=== PATIENT | female | born 1955 | race Caucasian/White ===

== ENCOUNTER 2018-06-24 13:31 | Emergency (ER) | payer OTHER, SELFPAY ==
[2018-06-24] VITALS (9 sets, daily range): BP systolic 126–153; BP diastolic 57–82; PULSE 92–100; RESP 15–21; TEMP 36.4–36.9; O2SAT 95–100
--- NOTE | 2018-06-24 13:56 | DI.RAD.S_ITS ---
PROCEDURE: XR CHEST 1V INDICATIONS: chest pressure TECHNIQUE: One view of the chest was acquired. COMPARISON: [facility], CHEST 1 VIEW, 09/15/2015, 22:20. [facility], CHEST 1 VIEW, 10/15/2015, 17:56. FINDINGS: Surgical changes and devices: None. Lungs and pleura: No pleural effusions or pneumothorax. Lungs are clear. Mediastinum: Mediastinal contours appear normal. Heart size is normal. Bones and chest wall: No suspicious bony lesions. Overlying soft tissues appear unremarkable. IMPRESSION: No acute cardiopulmonary disease process. Dictated by: Reanna Trujillo MD, PhD on 06/24/2018 at 14:32 Approved by: Reanna Trujillo MD, PhD on 06/24/2018 at 14:33
--- NOTE | 2018-06-24 13:58 | DI.CT.S_ITS ---
PROCEDURE: CT HEAD/BRAIN WO CON INDICATIONS: SCOTT, neuro symptoms TECHNIQUE: Noncontrast 4.5 mm thick angled axial sections acquired from the foramen magnum to the vertex, with coronal and sagittal reformats. For radiation dose reduction, the following was used: automated exposure control, adjustment of mA and/or kV according to patient size. COMPARISON: [facility], CT, HEAD WITHOUT CONTRAST, 08/02/2016, 8:49. FINDINGS: Image quality: Excellent. CSF spaces: Basal cisterns are patent. No extra-axial fluid collections. The ventricles are symmetric in size and shape. Brain: No intracranial bleeds or masses. There is minimal cerebral volume loss for age, with resultant ventricular and sulcal prominence. There are minimal periventricular and deep white matter chronic small vessel ischemic changes. Incidental note made of cavum septum pellucidum. There is intracranial internal carotid artery atherosclerosis. Skull and face: Calvarium and visualized facial bones appear intact, without suspicious lesions. Sinuses: Visualized sinuses and mastoids are clear. IMPRESSION: No acute intracranial disease process. Dictated by: Reanna Trujillo MD, PhD on 06/24/2018 at 14:09 Approved by: Reanna Trujillo MD, PhD on 06/24/2018 at 14:14
--- NOTE | 2018-06-24 14:03 | ED_ITS ---
HPI - Chest Pain General Chief Complaint: Chest Pain Stated Complaint: POSSIBLE STROKE Time Seen by Provider: 06/24/18 13:35 Source: patient and family Mode of arrival: ambulatory Limitations: no limitations History of Present Illness HPI narrative: 62-year-old female presents at the request of her primary care provider for evaluation of left arm pain as well as some left-sided neck and head pain which started on Saturday. Additionally she has some fullness in left side of her throat and a sensation that she is having difficulty swallowing. She denies provocation or palliation of her discomfort. She denies associated symptoms such as dizziness nor weakness or lightheadedness. She denies focal neurologic findings such as numbness, tingling or weakness. Her left arm discomfort is gone but the headache persists. Her headache is worse with bright lights and loud noises. She denies any history of migraines but does have a history of headaches. Onset (ago): day(s) Duration: constant Onset: during rest Pain location: other (Left arm) Severity: mild Pain radiation: LUE and neck Relieving factors: nothing Exacerbating factors: nothing Context: recent travel Related Data Home Medications Medication Instructions Recorded Confirmed aspirin 81 mg PO QDAY #0 09/03/16 06/24/18 onabotulinumtoxinA [Botox] 100 unit INJ Q3M #0 09/03/16 06/24/18 atorvastatin [Lipitor] 5 mg PO EVERY OTHER DAY #0 09/04/16 06/24/18 exenatide microspheres [Bydureon] 2 mg SQ QWEEK #0 09/04/16 06/24/18 Prilosec OTC 1 cap PO DAILY 06/24/18 06/24/18 acetaminophen 1,000 mg PO TID 06/24/18 06/24/18 insulin NPH isoph U-100 human 15 units SUB-Q QPM 06/24/18 06/24/18 [Novolin N NPH U-100 Insulin] metformin 1,000 mg PO BID 06/24/18 06/24/18 topiramate 100 mg PO BID 06/24/18 06/24/18 Previous Rx's Medication Instructions Recorded methocarbamol [Robaxin-750] 750 mg PO QIDP PRN #40 tab 08/02/16 Allergies Allergy/AdvReac Type Severity Reaction Status Date / Time ketorolac [From TORADOL] Allergy Severe VEIN Unverified 03/12/18 11:45 BURNING/CARDIAC REACTION CRITICAL phenytoin [From DILANTIN] Allergy Severe HIVES Unverified 03/12/18 11:45 pravastatin [From PRAVACHOL] Allergy Severe RASH Unverified 03/12/18 11:45 nalbuphine [From NUBAIN] Allergy Intermediate UNKNOWN Unverified 03/12/18 11:45 REACTION PER PT Penicillins [PENICILLINS] Allergy Intermediate HIVES Unverified 03/12/18 11:45 phenobarbital [PHENOBARBITAL] Allergy Intermediate HIVES Unverified 03/12/18 11: 45 Sulfa (Sulfonamide Allergy Intermediate HIVES Unverified 03/12/18 11:45 Antibiotics) [SULFA (SULFONAMIDE ANTIBIOTICS)] NSAIDS (Non-Steroidal Allergy Unknown DIARRHEA Unverified 03/12/18 11:45 Anti-Inflamma [NSAIDS (NON-STEROIDAL ANTI-INFLAMMA] aspirin [ASPIRIN] AdvReac Severe FULL Unverified 03/12/18 11:45 STRENGTH -IT BAINS ME UP INSIDE/CRAMPS CAN TAKE 81MG ciprofloxacin [From CIPRO] AdvReac Severe DIARRHEA Unverified 03/12/18 11:45 hydroxyzine [From VISTARIL] AdvReac Severe MY HEART Unverified 03/12/18 11:45 WAS POUNDING HARD, PASSING OUT avocado [AVOCADO] AdvReac Intermediate VOMITING Unverified 03/12/18 11:45 fluoxetine [From PROZAC] AdvReac Intermediate NAUSEA/VOMI Unverified 03/12/18 11 :45 TING ibuprofen [IBUPROFEN] AdvReac Intermediate GI Unverified 03/12/18 11:45 UPSET/DIARRHEA sulfamethoxazole AdvReac Intermediate MY BRAIN Unverified 03/12/18 11:45 [From SEPTRA] FEELS LIKE IT'S SWELLING trimethoprim [From SEPTRA] AdvReac Intermediate MY BRAIN Unverified 03/12/18 11 :45 FEELS LIKE IT'S SWELLING CLAMS Allergy Severe ABDOMINAL Uncoded 03/12/18 11:45 PAINS YELLOW JACKETS Allergy Severe SWELLING Uncoded 03/12/18 11:45 AT SITE Review of Systems Review of Systems All systems reviewed & are unremarkable except as noted in HPI and below Constitutional Denies chills, Denies fever(s), Reports headache(s), Denies lethargy and Denies weakness Eyes Denies change in vision, Denies eye discharge, Denies irritation and Denies loss of vision ENT Ears, Nose, Mouth, and Throat: Denies change in voice, Reports headache(s), Reports neck pain and Denies sore throat Cardiovascular Denies chest pain, Denies irregular heart rhythm, Denies lightheadedness, Denies palpitations, Denies dyspnea, Denies dyspnea on exertion and Denies orthopnea Respiratory Denies cough, Denies dyspnea, Denies dyspnea on exertion and Denies wheezing Gastrointestinal Gastrointestinal: Denies abdominal pain, Denies change in bowel habits, Denies diarrhea, Denies nausea and Denies vomiting Genitourinary Denies hematuria, Denies flank pain, Denies urinary incontinence and Denies urinary urgency Musculoskeletal Reports limited range of motion, Reports muscle cramps and Reports neck pain Integumentary/Breasts Denies pruritus, Denies erythema, Denies rash and Denies wounds Neurologic Denies confusion, Reports headache(s), Denies loss of vision and Denies weakness Comments: Left side of throat has difficulty with swallowing Psychiatric Denies anxiety, Denies confusion, Denies depression, Denies homicidal ideation and Denies suicidal ideation Endocrine Denies palpitations Hematologic/Lymphatic Denies easy bruising Allergic/Immunologic Denies wheezing Exam Narrative Exam Narrative: 62-year-old female pleasant and resting comfortably Initial Vital Signs Initial Vital Signs: Vital Signs Temperature 97.5 F L 06/24/18 13:41 Pulse Rate 100 H 06/24/18 13:41 Respiratory Rate 20 06/24/18 13:41 Blood Pressure 153/82 H 06/24/18 13:41 Pulse Oximetry 97 06/24/18 13:41 Const General: cooperative, well developed, in distress and anxious Nutritional Appearance: well nourished Orientation: alert, awake, oriented x3 and not confused [facility] Head: normocephalic and atraumatic Ears: external ears normal and TM's normal bilaterally Nose: external nose normal and No nasal discharge Face and sinus: sinuses nontender, face symmetric, no sinus tenderness and No dry mucous membranes Mouth: oral mucosae normal and moist mucous membranes Teeth and gingiva: dentition normal Throat: tonsils normal and uvula midline Eyes General: appearance normal, both eyes and all related structures Eyelids: eyelids normal Conjunctivae: conjunctivae normal Sclera: sclerae normal Pupils: PERRL EOM: EOM intact bilaterally Neck Neck: normal visual inspection, trachea midline, No lymphadenopathy, No midline deformity and No JVD Lymphatic: No lymphedema Chest Chest: normal inspection of the chest Resp Effort & Inspection: normal respiratory effort, able to speak in complete sentences, no respiratory distress and no use of accessory muscles Auscultation: clear to auscultation bilaterally, no rales, no rhonchi and no wheezes Cardio Rate: regular rate Rhythm: regular rhythm Heart Sounds: no click, no gallops, no murmurs and no rubs Pulses: normal peripheral pulses GI Inspection: non-distended Palpation: soft, no hepatosplenomegaly, No guarding, No pulsatile mass and No tender Auscultation: normal bowel sounds Back/Spine/Pelvis Back: No CVA tenderness Cervical Spine: cervical ROM normal and No pain with cervical ROM Thoracic/Lumbar Spine: thoracic and lumbar spine normal to inspection Skin General: no rashes or lesions noted, No jaundice and No petechiae Neuro General: alert, oriented x3, gait normal and no focal motor deficits Speech: speech normal Other: NIH Stroke Scale 1a. LOC: Patient is alert and keenly responsive (0) 1b. LOC Questions: Patient answers both LOC questions accurately (0) 1c. LOC Commands: Patient performs both tasks correctly (0) 2. Best Gaze: Normal (0) 3. Visual: No visual loss (0) 4. Facial palsy: Normal symmetrical movements (0) 5. Motor arm: No drift (0) 6. Motor leg: No drift (0) 7. Limb ataxia: Absent (0) 8. Sensory: Normal (0) 9. Best language: No aphasia; normal (0) 10. Dysarthria: Normal (0) 11. Extinction and inattention: No abnormality (0) NIHSS: 0 Extrem General: full ROM, no clubbing, cyanosis or edema, no pedal edema and no calf tenderness Psych Appearance: well kempt Mental Status: mental status grossly normal Attitude: cooperative Thought Content: normal and suicidality Judgment: judgment good Course Orders Ordered: ED Orders 06/24/18 13:56 XR chest 1V Stat 06/24/18 13:58 CT head/brain wo con Stat 06/24/18 14:10 Complete Blood Count AUTO DIFF Stat Comprehensive Metabolic Panel Stat Lipase Stat Troponin & CK Cardiac Panel Stat 06/24/18 15:22 CT angio head and neck Stat Discontinued Medications Aspirin (Aspirin Chew) 324 mg PO NOW ONE Stop: 06/24/18 13:57 Last Admin: 06/24/18 15:24 Dose: 243 mg Sodium Chloride (Normal Saline 0.9%) 1,000 mls @ 150 mls/hr IV CONT BLAZE Last Infusion: 06/24/18 17:10 Dose: 0 mls/hr Admin: 06/24/18 15:24 Dose: 150 mls/hr Vital Signs - 8 hr 06/24/18 13:41 06/24/18 14:30 06/24/18 14:50 Temperature 97.5 F L Pulse Rate 100 H 100 H 97 H Respiratory Rate 20 16 21 Blood Pressure 153/82 H Blood Pressure [Left Arm] 135/62 H 137/78 H Blood Pressure [Right Arm] Pulse Oximetry 97 95 97 06/24/18 14:55 06/24/18 15:00 06/24/18 15:05 Temperature Pulse Rate 98 H 97 H Respiratory Rate 15 20 Blood Pressure Blood Pressure [Left Arm] 126/73 H Blood Pressure [Right Arm] 135/57 H 126/73 H Pulse Oximetry 97 97 06/24/18 16:02 06/24/18 17:02 06/24/18 17:12 Temperature 98.4 F Pulse Rate 92 H 94 H 92 H Respiratory Rate 16 21 16 Blood Pressure 145/65 H Blood Pressure [Left Arm] Blood Pressure [Right Arm] 142/67 H 145/80 H Pulse Oximetry 100 100 98 MDM - Chest Pain Lab Data Result diagrams: 06/24/18 14:10 06/24/18 14:10 Lab Results 06/24/18 06/24/18 Range/Units 14:10 14:10 WBC 4.5 (4.5-11.0) X10^3/uL RBC 4.00 (4.0-5.2) X10^6/uL Hgb 10.7 L (12.0-16.0) g/dL Hct 32.8 L (36-46) % MCV 82.0 (80-100) fL MCH 26.9 (26-34) PG MCHC 32.8 (30-36) % RDW 15.7 H (11.6-14.8) % Plt Count 243 (150-400) X10^3/uL Neut % (Auto) 46.9 L (50-75) % Lymph % (Auto) 42.4 H (25-40) % [place] % (Auto) 7.3 (3-14) % Eos % (Auto) 2.6 (2-4) % Baso % (Auto) 0.8 (0-2) % Neut # (Auto) 2100 L (7332-8470) /uL Sodium 144 (137-145) mmol/L Potassium 4.0 (3.4-5.1) mmol/L Chloride 106 (98-107) mmol/L Carbon Dioxide 24 (22-32) mmol/L BUN 14 (7-17) mg/dL Creatinine 1.00 (0.52-1.04) mg/dL Estimated GFR 55.8 L (>60) mL/min BUN/Creatinine Ratio 14.0 (6-22) Glucose 110 (80-110) mg/dL Calcium 9.2 (8.4-10.2) mg/dL Total Bilirubin 0.4 (0.2-1.3) mg/dL AST 30 (14-36) IU/L ALT 27 (9-52) IU/L Alkaline Phosphatase 51 (38-126) U/L Total Creatine Kinase 77 (30-135) U/L Troponin I < 0.012 (0.01-0.034) ng/mL Total Protein 6.7 (6.3-8.2) g/dL Albumin 4.2 (3.5-5.0) g/dL Globulin 2.5 (1.7-4.1) g/dL Albumin/Globulin Ratio 1.7 (1.0-2.8) Lipase 267 (23-300) U/L ECG Data Attestation: I personally reviewed and interpreted this ECG as follows: Prior ECG tracings: not available for review Interpretation: Normal sinus rhythm without signs of ectopy or ischemia such as ST segmental elevations or T-wave inversions Discharge Plan Departure Patient Disposition: Home, Self-Care Clinical Impression: Arm pain, left, Headache Discharge Date/Time: 06/24/18 17:11 Interventions: ED Discharge Assessment Last Done: 06/24/18 17:12 Instructions: DI for Headache Activity Restrictions/Additional Instructions: *You have been diagnosed with [ headache and Left Arm Pain ] *What to do: *Take medications as directed *Follow up with your primary care provider in 2-3 days, call for an appointment. Let them know you were seen in the Emergency Department and that we ask that you be seen in follow up *Return to ER if you should have any new, worsening or concerning symptoms , such as [ stroke like symptoms such as vision change, numbness or weakness of extremities or other bothersome symptoms] Prescriptions: No Action methocarbamol [Robaxin-750] 750 MG tablet 750 mg PO QIDP PRNQty: 40 RF: 0 aspirin 81 MG tablet,delayed release (DR/EC) 81 mg PO QDAY Qty: 0 RF: 0 onabotulinumtoxinA [Botox] 100 UNIT recon soln 100 unit INJ Q3M Qty: 0 RF: 0 exenatide microspheres [Bydureon] 2 MG/0.65 ML pen injector 2 mg SQ QWEEK Qty: 0 RF: 0 atorvastatin [Lipitor] 10 MG tablet 5 mg PO EVERY OTHER DAY Qty: 0 RF: 0 metformin 1,000 mg tablet 1,000 mg PO BID RF: 0 insulin NPH isoph U-100 human [Novolin N NPH U-100 Insulin] 100 unit/mL suspension 15 units Sub-Q QPM RF: 0 topiramate 100 mg tablet 100 mg PO BID RF: 0 acetaminophen 500 mg Tablet 1,000 mg PO TID RF: 0 Prilosec OTC 1 cap PO DAILY RF: 0
[2018-06-24 14:22] LABS: Add Manual Diff / Slide Review NO; Basophils Percent Auto 0.8 % (0-2); Eosinophils Percent Auto 2.6 % (2-4); Hematocrit 32.8 % (36-46); Hemoglobin 10.7 g/dL (12.0-16.0); Lymphocytes Percent Auto 42.4 % (25-40); Mean Corpuscular HGB Conc 32.8 % (30-36); Mean Corpuscular Hemoglobin 26.9 PG (26-34); Monocytes Percent Auto 7.3 % (3-14); Neutrophils Absolute Auto 2100 /uL (3000-5900); Neutrophils Percent Auto 46.9 % (50-75); Platelet Count 243 X10^3/uL (150-400); Red Cell Distribution Width 15.7 % (11.6-14.8); White Blood Cell Count 4.5 X10^3/uL (4.5-11.0)
--- NOTE | 2018-06-24 14:22 | PC.NURSE ---
Patient with headache and having difficulties swallowing;
--- NOTE | 2018-06-24 14:23 | PC.NURSE ---
Unsuccessful attempt in right AC;
[2018-06-24 14:35] LABS: Alanine Aminotransferase 27 IU/L (9-52); Albumin 4.2 g/dL (3.5-5.0); Albumin Globulin Ratio 1.7 (1.0-2.8); Alkaline Phosphatase 51 U/L (38-126); Aspartate Aminotransferase 30 IU/L (14-36); Bilirubin Total 0.4 mg/dL (0.2-1.3); Blood Urea Nitrogen 14 mg/dL (7-17); Calcium 9.2 mg/dL (8.4-10.2); Carbon Dioxide 24 mmol/L (22-32); Chloride 106 mmol/L (98-107); Creatine Kinase 77 U/L (30-135); Estimated Glomerular Filt Rate 55.8 mL/min (>60); Globulin 2.5 g/dL (1.7-4.1); Glucose 110 mg/dL (80-110); HEMOLYSIS < 15 (0-50); Lipase 267 U/L (23-300); Sodium 144 mmol/L (137-145); Total Protein 6.7 g/dL (6.3-8.2)
[2018-06-24 14:47] LABS: Troponin I < 0.012 ng/mL (0.01-0.034)
--- NOTE | 2018-06-24 15:22 | DI.CT.S_ITS ---
PROCEDURE: CT ANGIO HEAD AND NECK INDICATIONS: headache, neurologic symptoms. TECHNIQUE: Pre-contrast 4.5 mm thick sections acquired from the foramen magnum to the vertex. After the administration of intravenous contrast, 1 mm thick sections acquired from the aortic arch through the [place]. Post-contrast 4.5 mm thick sections then re-acquired from the foramen magnum to the vertex. 3-dimensional turuclh-xypcoqqda-sbmhhmugdv (MIP) and/or volume rendering reformats were acquired of the central intracranial vasculature and neck separately. COMPARISON: [facility], CT, CT HEAD/BRAIN WO CON, 06/24/2018, 13:53. FINDINGS: Image quality: Excellent. BRAIN: CSF spaces: Ventricles are normal in size and shape. Basal cisterns are patent. No extra-axial fluid collections. Brain: No midline shift. No intracranial bleeds or masses. Rodríguez-white matter interface appears intact. Skull and face: Calvarium and facial bones appear intact, without suspicious lesions. Orbits appear normal. Sinuses: Sinuses and mastoids are clear. HEAD CT ANGIOGRAPHY: Anterior circulation: Intracranial internal carotid arteries are normal in flow. Atherosclerotic calcifications noted in the cavernous and supraclinoid segments of the internal carotid arteries bilaterally. Atherosclerotic calcification causes mild narrowing of the cavernous segment of the right internal carotid artery. Atherosclerotic calcifications do not cause of measurable stenosis of the left internal carotid artery. The flow within the paired anterior cerebral arteries is normal and symmetric. The flow within the middle cerebral arteries is normal and symmetric. The anterior communicating artery is seen. No aneurysms are seen. Posterior circulation: Visualized portions of the vertebral arteries demonstrate normal caliber, and join to form a normal appearing basilar artery. Flow within the posterior cerebral arteries is normal and symmetric. The right posterior cerebral artery has a origin which is a congenital anatomic variant. No aneurysms are seen. Dural sinuses demonstrate normal postcontrast enhancement. NECK CT ANGIOGRAPHY: Carotid system: The great vessels demonstrate a conventional anatomy as they arise from the aortic arch. The origins of the common carotid arteries appear patent. The common carotid arteries demonstrate normal caliber and courses. Atherosclerotic calcifications noted in the origins of the internal carotid arteries which causes less than 50% stenosis of the vessels. Posterior circulation: The origins of the vertebral arteries both appear widely patent. The more superior extracranial portions of both vertebral arteries also demonstrate normal courses and calibers. They join to form a normal appearing basilar artery. Soft tissues: Visualized neck soft tissues demonstrate no suspicious abnormalities. Low-density lesion opacifies the right vallecula and likely represents phlegm. Bones: No suspicious bony lesions. Spine degenerative disc disease and facet arthropathy. Visualized cervical spine appears normally aligned. IMPRESSION: No large vessel occlusion, hemodynamically significant stenosis, vascular dissection or aneurysm. Any quantitative measurements of stenosis were performed using NASCET criteria. Dictated by: Reanna Trujillo MD, PhD on 06/24/2018 at 16:04 Approved by: Reanna Trujillo MD, PhD on 06/24/2018 at 16:26
[2018-06-24] MEDS: SODIUM CHLORIDE 0.9% 1,000 ML 150 ML IV (15:24)
[2018-06-24] MEDS: ASPIRIN 81 MG TAB 324 MG PO (15:24)
== END 2018-06-24 17:11 | disposition home or self-care (01) ==
PROVIDERS: Emergency Provider Emergency Medicine; Family Provider Orthopaedic Surgery Orthopaedic Surgery of the Spine; PCP Family Medicine
DX: M79.602 Pain in left arm (principal); R51 Headache
CPT/HCPCS: 36591; 70450; 70496; 70498; 71045; 80053; 81003; 82550; 82553; 83690; 84484; 85025; 93005; 96360; 96361; 99284; 99285; 99291; Q9967

== ENCOUNTER → 2019-06-22 12:06 | Outpatient (CLI) | payer OTHER, SELFPAY | PROVIDERS: Family Provider Orthopaedic Surgery Orthopaedic Surgery of the Spine; PCP Family Medicine; Visit Provider Physician Assistant | DX: N89.8 Other specified noninflammatory disorders of vagina (principal); R30.0 Dysuria | CPT/HCPCS: 87077; 87086; 87186; 87210 ==

== ENCOUNTER → 2019-08-21 13:38 | Outpatient (CLI) | payer OTHER, SELFPAY | PROVIDERS: Family Provider Orthopaedic Surgery Orthopaedic Surgery of the Spine; PCP Family Medicine; Visit Provider Physician Assistant | DX: R30.0 Dysuria (principal) | CPT/HCPCS: 87086 ==

== ENCOUNTER → 2020-11-18 14:07 | Outpatient (CLI) | payer OTHER, SELFPAY | PROVIDERS: Family Provider Orthopaedic Surgery Orthopaedic Surgery of the Spine; PCP Internal Medicine; Visit Provider Student in an Organized Health Care Education/Training Program | DX: N94.9 Unspecified condition associated with female genital organs and menstrual cycle (principal); R30.0 Dysuria | CPT/HCPCS: 87086; 87210 ==

== ENCOUNTER → 2021-03-19 16:38 | Outpatient (CLI) | payer OTHER, SELFPAY | PROVIDERS: Family Provider Orthopaedic Surgery Orthopaedic Surgery of the Spine; PCP Internal Medicine; Visit Provider Physician Assistant | DX: N34.3 Urethral syndrome, unspecified (principal) | CPT/HCPCS: 87086 ==